=== PATIENT | female | born 1995 | race Caucasian/White ===

== ENCOUNTER 2018-08-09 22:40 | Emergency (ER) | payer OTHER ==
--- NOTE | 2018-08-09 22:58 | ED Physician Documentation ---
PD HPI LOWER EXT INJURY - Stated complaint Stated Complaint: FOOT INJURY - Chief complaint Chief Complaint: Ext Problem - History obtained from History obtained from: Patient - History of Present Illness PD HPI LOW EXT INJURY LOCATION: Right, Foot Type of injury: Fall, Twist Where injury occurred: Park Timing - onset: Today Timing - duration: Minutes Timing - details: Abrupt onset, Still present Improved by: Rest, Immobilization Worsened by: Moving, Palpating Associated symptoms: No: Weakness, Numbness, Tingling, Swelling Contributing factors: No: Anticoagulated Similar symptoms before: Has not had sx before Recently seen: Not recently seen - Additional information Additional information: Previously well 22-year-old female was running along the [place] when she slipped with her right foot over a ledge and twisted her foot. She has severe pain to the lateral aspect of her foot. She does not have pain over her ankle and she is not able to bear weight. She has not tried to bear weight and is hopping. Review of Systems Constitutional: denies: Fever Ears: denies: Ear pain Nose: denies: Congestion Throat: denies: Sore throat Respiratory: denies: Cough GI: denies: Nausea, Vomiting, Constipation, Diarrhea : denies: Dysuria PD PAST MEDICAL HISTORY - Past Medical History Past Medical History: No - Past Surgical History Past Surgical History: Yes HEENT: Myringotomy (tubes) - Allergies Allergies/Adverse Reactions: Allergies Allergy/AdvReac Type Severity Reaction Status Date / Time No Known Drug Allergies Allergy Verified 08/09/18 22:54 - Social History Does the pt smoke?: No Smoking Status: Never smoker Does the pt drink ETOH?: No Does the pt have substance abuse?: No - Immunizations Immunizations are current?: Yes - POLST Patient has POLST: No PD ED PE NORMAL - Vitals Vital signs reviewed: Yes (tahcy and hypertensive ) - General General: Alert and oriented X 3, No acute distress, Well developed/nourished - HEENT HEENT: Atraumatic, PERRL, EOMI - Respiratory Respiratory: No respiratory distress - Derm Derm: Normal color, Warm and dry, No rash - Extremities Extremities: No deformity, No edema, Other (There is specific tenderness to the proximal 5th on the right side and there is no tenderness or swelling to the malleoli. distal n/v is intact. ) - Neuro Neuro: Alert and oriented X 3, furnace combustion analyst 2-12 intact, No motor deficit, No sensory deficit, Normal speech Eye Opening: Spontaneous Motor: Obeys Commands Verbal: Oriented GCS Score: 15 - Psych Psych: Normal mood, Normal affect Results - Vitals Vitals: Vital Signs - 24 hr 08/09/18 22:45 Temperature 36.8 C Heart Rate 115 H Respiratory 17 Rate Blood Pressure 138/96 H O2 Saturation 98 Oxygen O2 Source Room air - Rads (name of study) right foot Radiology: Prelim report reviewed (Mildly displaced fracture of the base of the 5th metatarsal), EMP read indepedently, See rad report Procedures - Splint (location) right foot Splint applied by: Tech Type of splint: Fiberglass, Posterior Other: Patient tolerated well, No complications, Neurovascular intact, Good alignment PD MEDICAL DECISION MAKING - ED course Complexity details: reviewed results, re-evaluated patient, considered differential, d/w patient, d/w family ED course: 22-year-old female previously healthy with a proximal fifth metatarsal fracture that is nondisplaced is placed into a posterior splint and onto crutches. She will need follow-up with orthopedics in the next week. - Sepsis Event Vital Signs: Vital Signs - 24 hr 08/09/18 22:45 Temperature 36.8 C Heart Rate 115 H Respiratory 17 Rate Blood Pressure 138/96 H O2 Saturation 98 Oxygen O2 Source Room air Departure - Departure Disposition: 01 Home, Self Care Clinical Impression: Metatarsal bone fracture Qualifiers: Encounter type: initial encounter Metatarsal bone: fifth Fracture type: closed Fracture alignment: nondisplaced Laterality: right Qualified Code(s): S92.354A - Nondisplaced fracture of fifth metatarsal bone, right foot, initial encounter for closed fracture Condition: Stable Instructions: ED Fx Foot Follow-Up: TOREY EDGE [Primary Care Provider] - [facility] [Provider Group]
--- NOTE | 2018-08-09 23:26 | XRAY Report ---
Reason: twist and pain over proximal 5th Procedure Date: 08/09/2018 Accession Number: [id number] / [id number] Procedure: XR - Foot 3 View RT CPT Code: FULL RESULT: EXAM: RIGHT FOOT RADIOGRAPHY EXAM DATE: 08/09/2018 11:17 PM. CLINICAL HISTORY: Twist and pain over proximal 5th. COMPARISON: None. TECHNIQUE: 3 views. FINDINGS: Bones: Mildly displaced fracture of the base of the fifth metatarsal. Joints: Normal. No subluxations. Soft Tissues: Lateral soft tissue swelling. IMPRESSION: Mildly displaced fracture of the base of the fifth metatarsal. RADIA
[2018-08-09 23:59] VITALS: BP 137/96
== END 2018-08-10 00:21 | disposition home or self-care (01) ==
LOC: ED 22:40
DX: S92.354A Nondisplaced fracture of fifth metatarsal bone, right foot, initial encounter for closed fracture (principal); W01.0XXA Fall on same level from slipping, tripping and stumbling without subsequent striking against object, initial encounter; X50.9XXA Other and unspecified overexertion or strenuous movements or postures, initial encounter; Y92.830 Public park as the place of occurrence of the external cause
CPT/HCPCS: 99283

== ENCOUNTER 2019-03-21 20:57 | Emergency (ER) | payer OTHER ==
--- NOTE | 2019-03-21 21:21 | ED Physician Documentation ---
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 denies: Vomiting, Constipation, Diarrhea : reports: Irregular menses (had been regular until Dec, then just light/spotting periods the past 2-3 months, with negative tests.). 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: Ovarian cysts : None HEENT: None Psych: Depression Musculoskeletal: None Derm: None Other Past Medical History: pt has IUD - Past Surgical History Past Surgical History: Yes HEENT: Myringotomy (tubes) - Present Medications Home Medications: Ambulatory Orders Medication Instructions Recorded Confirmed Dextroamphetamine/Amphetamine 15 mg PO DAILY 03/21/19 03/21/19 [Adderall 15 mg Tablet] Naproxen 500 mg PO BID #20 tablet 03/21/19 Tramadol HCl 50 mg PO Q6H PRN #15 tablet 03/21/19 - Allergies Allergies/Adverse Reactions: Allergies Allergy/AdvReac Type Severity Reaction Status Date / Time No Known Drug Allergies Allergy Verified 03/21/19 21:09 - Social History Does the pt smoke?: No Smoking Status: Never smoker Does the pt drink ETOH?: No Does the pt have substance abuse?: No - Immunizations Immunizations are current?: Yes - POLST Patient has POLST: No PD ED PE NORMAL - Vitals Vital signs reviewed: Yes - General General: Alert and oriented X 3, No acute distress, Well developed/nourished - Cardiac Cardiac: RRR, No murmur - Respiratory Respiratory: Clear bilaterally - Abdomen Abdomen: Normal bowel sounds, Soft, Non distended, Other (tender in lower abd/suprapubic area, both left and right. ) - Female Female : Deferred - Rectal Rectal: Deferred - Back Back: No CVA TTP - Derm Derm: Normal color, Warm and dry - Neuro Neuro: Alert and oriented X 3, No motor deficit, Normal speech Results - Vitals Vitals: Vital Signs - 24 hr 03/21/19 03/21/19 03/21/19 21:07 22:57 22:59 Temperature 36.2 C L 36.3 C L Heart Rate 98 65 Respiratory 14 16 16 Rate Blood Pressure 136/87 H 131/82 H O2 Saturation 100 96 03/21/19 23:31 Temperature Heart Rate Respiratory 16 Rate Blood Pressure O2 Saturation Oxygen O2 Source Room air - Labs Labs: Laboratory Tests 03/21/19 21:10 Urine Color YELLOW Urine Clarity CLEAR Urine pH 7.5 Ur Specific Stephenson 1.015 Urine Protein NEGATIVE Urine Glucose (UA) NEGATIVE Urine Ketones NEGATIVE Urine Occult Blood NEGATIVE Urine Nitrite NEGATIVE Urine Bilirubin NEGATIVE Urine Urobilinogen 0.2 (NORMAL) Ur Leukocyte Esterase NEGATIVE Ur Microscopic Review NOT INDICATED Urine Culture Comments NOT INDICATED Urine HCG, Qual NEGATIVE - Rads (name of study) pelvic U/S Radiology: Prelim report reviewed (4 cm collaapsing cyst on right, with some free fluid in pelvis. ), See rad report PD MEDICAL DECISION MAKING - ED course Complexity details: reviewed results (Ultrasound showing collapsing 4 cm cyst with a little bit of free fluid. This seems a reasonable cause for her pain.), considered differential (Given the abruptness of the pain during intercourse, consider ovarian cyst versus ovarian torsion or even consider kidney stone. She denies any discharge in given the abruptness of it, I would think unlikely an STD or vaginitis. We will do ultrasound. Her pain has improved quite a bit on route and after arriving here in the ER so we cannot have to give much starting medicine.), d/w patient Departure - Departure Disposition: 01 Home, Self Care Clinical Impression: Pelvic pain Ovarian cyst Qualifiers: Laterality: right Qualified Code(s): N83.201 - Unspecified ovarian cyst, right side Condition: Stable Record reviewed to determine appropriate education?: Yes Instructions: Cyst Ruptured Ovarian Tx Follow-Up: TOREY EDGE [Primary Care Provider] - Prescriptions: Naproxen 500 mg PO BID #20 tablet Tramadol HCl 50 mg PO Q6H PRN #15 tablet PRN Reason: Pain Comments: There is a still 4 cm cyst on the right ovary though looks like it is partially collapsed (is not uniformly round) and there is some small amount of free fluid in the pelvis. You may continue with some pelvic pain over the next couple of days. Use some anti-inflammatories such as ibuprofen or naproxen 2-3 times daily. Add Tylenol or tramadol if needed for worse pains. Follow-up with your primary care if not improved over the next few days. Follow-up with your primary for likely repeat ultrasound in couple of weeks to see that the cyst is improved/ not growing. Forms: Activity restrictions Discharge Date/Time: 03/21/19 23:32
[2019-03-21 21:26] LABS: BILIRUBIN,URINE NEGATIVE (NEGATIVE); GLUCOSE, URINE (UA) NEGATIVE (NEGATIVE); KETONES,URINE (UA) NEGATIVE (NEGATIVE); LEUKOCYTE ESTERASE, URINE NEGATIVE (NEGATIVE); NITRITE,URINE NEGATIVE (NEGATIVE); OCCULT BLOOD,URINE NEGATIVE (NEGATIVE); PH,URINE 7.5 PH (5.0-7.5); PROTEIN,URINE NEGATIVE (NEGATIVE); UROBILINOGEN,URINE 0.2 (NORMAL) E.U./dL (NORMAL)
[2019-03-21 21:27] LABS: CLARITY,URINE CLEAR (CLEAR); HCG UR QUAL NEGATIVE
[2019-03-21] MEDS ORDERED: IBUPROFEN 600 MG TABLET PO STA (21:47)
[2019-03-21 22:59] VITALS: BP 131/82
--- NOTE | 2019-03-21 23:14 | Ultrasound Report ---
Reason: pelvic pain with intercourse today Procedure Date: 03/21/2019 Accession Number: [id number] / [id number] Procedure: US - Pelvic w/Transvag+Doppler Ltd CPT Code: FULL RESULT: EXAM: PELVIC ULTRASOUND WITH DOPPLERS CLINICAL HISTORY: Pelvic pain with intercourse today. COMPARISON: None. TECHNIQUE: Real-time transabdominal imaging performed to identify the uterus and adnexa and as an overview of other pelvic structures, followed by transvaginal imaging for better assessment of the endometrium and adnexa, with static image documentation. Color flow imaging and Doppler spectral analysis was performed to evaluate blood flow to the ovaries given pelvic pain and clinical concern for ovarian torsion. FINDINGS: Uterus: 7.5 x 5.2 x 3.6 cm, volume 73.4 cc. Anteverted position. Normal overall size and echotexture. Masses: None. Endometrium: 6 mm. Normal. IUD appears to be in proper position. Cervix: Unremarkable. Right Ovary: 4.4 x 4.4 x 3.7 cm, volume 46.8 cc. Enlarged, containing a 44 x 29 x 38 mm grossly simple cyst. Arterial and venous blood flow are present. PSV 31.2 cm/sec. RI 0.51. Adnexa are unremarkable. Left Ovary: 3.0 x 1.8 x 1.5 cm, volume 4.2 cc. Normal echotexture. Arterial and venous blood flow are present. PSV 6.5 cm/sec. RI 0.57. Adnexa are unremarkable. Free Fluid: Small to moderate. Other: None. IMPRESSION: 1. Likely partially collapsed 4 cm right ovarian cyst. 2. Arterial and venous blood flow are present to the ovaries bilaterally. RADIA
== END 2019-03-21 23:32 | disposition home or self-care (01) ==
LOC: ED 20:57
DX: N83.201 Unspecified ovarian cyst, right side (principal); Z97.5 Presence of (intrauterine) contraceptive device
CPT/HCPCS: 76830; 76856; 81003; 81025; 93976; 99283; A9270; 81001; 87086

== ENCOUNTER 2019-11-08 02:10 | Emergency (ER) | payer OTHER ==
--- NOTE | 2019-11-08 03:57 | ED Physician Documentation ---
PD HPI BACK PAIN - Stated complaint Stated Complaint: BACK PX - Chief complaint Chief Complaint: Trauma Ch/Bk - History obtained from History obtained from: Patient - History of Present Illness Timing - onset: How many days ago (2) Timing - duration: Days Timing - details: Abrupt onset Location: Lower, Left Quality: Pain, Spasm Associated symptoms: No: Fever, Weakness, Numbness, Incontinent of urine, Unable to urinate, Hematuria, Incontinent of stool Improves with: Rest Worsened by: Movement Similar symptoms before: Has not had sx before Recently seen: Not recently seen - Additional information Additional information: sudden onset of mild left paralumbar back pain when bending forward while at [employer] 2 days ago. the pain gradually, steadily worsened and now involves the entire back (left, midline, right, upper, mid/lower). distinctly worse with movement. 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: Ovarian cysts : None HEENT: None Psych: Depression, Anxiety, ADD/ADHD, Post traumatic stress disorder Musculoskeletal: None Derm: None - Past Surgical History Past Surgical History: Yes HEENT: Myringotomy (tubes) - Present Medications Home Medications: Ambulatory Orders Medication Instructions Recorded Confirmed Dextroamphetamine/Amphetamine 15 mg PO DAILY 03/21/19 11/10/19 [Adderall 15 mg Tablet] Cyclobenzaprine [Flexeril] 10 mg PO TID PRN #20 tablet 11/08/19 11/10/19 Hydrocodone/Acetaminophen 1 - 2 each PO Q6H PRN #14 tablet 11/08/19 11/10/19 [Hydrocodon-Acetaminophen 5-325] - Allergies Allergies/Adverse Reactions: Allergies Allergy/AdvReac Type Severity Reaction Status Date / Time No Known Drug Allergies Allergy Verified 11/10/19 21:25 - Social History Does the pt smoke?: No Smoking Status: Never smoker Does the pt drink ETOH?: No Does the pt have substance abuse?: No - Immunizations Immunizations are current?: Yes - POLST Patient has POLST: No PD ED PE NORMAL - Vitals Vital signs reviewed: Yes - General General: Alert and oriented X 3, No acute distress, Well developed/nourished - Cardiac Cardiac: RRR, No murmur - Respiratory Respiratory: No respiratory distress, Clear bilaterally - Back Back: No CVA TTP, No spinal TTP - Derm Derm: Normal color, Warm and dry, No rash - Neuro Neuro: Alert and oriented X 3, poultry culler 2-12 intact, No motor deficit, No sensory deficit, Normal speech Results - Vitals Vitals: Oxygen O2 Source Room air PD MEDICAL DECISION MAKING - ED course Complexity details: re-evaluated patient, considered differential, d/w patient, d/w family Departure - Departure Disposition: Home, Self Care Clinical Impression: Back pain Condition: Good Instructions: ED Neck Back Pain General Follow-Up: [facility] [Provider Group] Prescriptions: Cyclobenzaprine [Flexeril] 10 mg PO TID PRN #20 tablet PRN Reason: Spasms Hydrocodone/Acetaminophen [Hydrocodon-Acetaminophen 5-325] 1 - 2 each PO Q6H PRN #14 tablet PRN Reason: pain Forms: Activity restrictions Discharge Date/Time: 11/08/19 05:42
[2019-11-08] MEDS ORDERED: HYDROmorphone 1 MG/ML CARPUJECT IM STA (04:14)
[2019-11-08] MEDS ORDERED: CYCLOBENZAPRINE 10 MG TABLET PO STA (04:14)
[2019-11-08] MEDS ORDERED: KETOROLAC 60 MG/2 ML VIAL IM STA (04:15)
[2019-11-08] MEDS ORDERED: ONDANSETRON ODT 4 MG TABLET TL STA (04:59)
[2019-11-08 05:42] VITALS: BP 116/74
== END 2019-11-08 05:42 | disposition home or self-care (01) ==
LOC: ED 02:10
DX: M54.5 Low back pain (principal)
CPT/HCPCS: 99283; 99284; A9270; J1170; Q0162

== ENCOUNTER 2019-11-10 21:18 | Emergency (ER) | payer OTHER ==
--- NOTE | 2019-11-10 21:30 | ED Physician Documentation ---
PD HPI GI BLEED - Stated complaint Stated Complaint: RECTAL BLEEDING - Chief complaint Chief Complaint: General - History obtained from History obtained from: Patient - History of Present Illness Timing - onset: How many minutes ago (20), Today Timing - duration: Minutes Timing - details: Abrupt onset (she had been constipated for a week, with small firm stools. Then no stool for few days now. Had some pain meds due to back pain which increased the constipation. Had firm stool this evening and noted red blood in toilet bowl and on paper with wiping. Feeling of still needing to pass stool that won't pass.) Associated symptoms: BRBPR Contributing factors: No: Sick contact, Bad food, Recent antibiotics Similar symptoms before: Has not had sx before Recently seen: Emergency Dept (for low back pain and Rx hydrocodone for pain few days ago.) Review of Systems Constitutional: denies: Fever, Chills GI: reports: Constipation. 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 : None HEENT: None Psych: Depression, Anxiety, ADD/ADHD, Post traumatic stress disorder Musculoskeletal: None Derm: None - Past Surgical History Past Surgical History: Yes HEENT: Myringotomy (tubes) - Present Medications Home Medications: Ambulatory Orders Medication Instructions Recorded Confirmed Dextroamphetamine/Amphetamine 15 mg PO DAILY 03/21/19 11/10/19 [Adderall 15 mg Tablet] Cyclobenzaprine [Flexeril] 10 mg PO TID PRN #20 tablet 11/08/19 11/10/19 Hydrocodone/Acetaminophen 1 - 2 each PO Q6H PRN #14 tablet 11/08/19 11/10/19 [Hydrocodon-Acetaminophen 5-325] - Allergies Allergies/Adverse Reactions: Allergies Allergy/AdvReac Type Severity Reaction Status Date / Time No Known Drug Allergies Allergy Verified 11/10/19 21:25 - Social History Does the pt smoke?: No Smoking Status: Never smoker Does the pt drink ETOH?: No Does the pt have substance abuse?: No - Immunizations Immunizations are current?: Yes - POLST Patient has POLST: No PD ED PE NORMAL - Vitals Vital signs reviewed: Yes - General General: Alert and oriented X 3, Well developed/nourished - Abdomen Abdomen: Normal bowel sounds, Soft, Non tender, Non distended, No organomegaly - Rectal Rectal: Other ( present during exam. There is small serosal tear at rectu m at left side. No bleeding currently. Digital exam felt small golfball sized impaction. No hemorrhoids felt. ) Results - Vitals Vitals: Vital Signs - 24 hr 11/10/19 11/10/19 21:22 22:59 Temperature 37.7 C H 37.4 C Heart Rate 103 H 106 H Respiratory 16 18 Rate Blood Pressure 142/89 H 149/92 H O2 Saturation 100 99 Oxygen O2 Source Room air PD MEDICAL DECISION MAKING - ED course Complexity details: considered differential (constipation with small serosal tear. Small impaction about golf ball size. Will give enema to soften. ), d/w patient Departure - Departure Disposition: 01 Home, Self Care Clinical Impression: Constipation Qualifiers: Constipation type: unspecified constipation type Qualified Code(s): K59.00 - Constipation, unspecified Serosal tear of rectum Qualifiers: Encounter type: initial encounter Qualified Code(s): S36.63XA - Laceration of rectum, initial encounter Condition: Stable Record reviewed to determine appropriate education?: Yes Instructions: ED Constipation Follow-Up: ELDER THOMPSON ARNP [Primary Care Provider] - Comments: Stay well-hydrated. Continue the stool softener twice daily for the next few days and then once daily after that for regular bowel movements. The small tear at the rectal area should heal itself well. You can use some ointment to the area such as A&E ointment or Vaseline to have it coated and capped softer so it does not open as easily with subsequent bowel movements. Recheck if not better over the next few days. Discharge Date/Time: 11/10/19 23:09
[2019-11-10] MEDS ORDERED: MINERAL OIL ENEMA 133 ML BOTTLE RC STA (21:46)
[2019-11-10 23:00] VITALS: BP 149/92
== END 2019-11-10 23:09 | disposition home or self-care (01) ==
LOC: ED 21:18
DX: K59.00 Constipation, unspecified (principal); S36.63XA Laceration of rectum, initial encounter; X58.XXXA Exposure to other specified factors, initial encounter
CPT/HCPCS: 99282; 99283; A9270